=== PATIENT | female | born 1960 | race Two or more races ===

== ENCOUNTER 2021-03-08 10:08 | Emergency (ER) | payer OTHER ==
[~2021-03-08] VITALS: Ht 162.6 cm; Wt 90.7 kg
[2021-03-08] MEDS ORDERED: SEROQUEL25 MG PO (10:24)
[2021-03-08] MEDS ORDERED: LIPOFEN150 MG (10:24)
[2021-03-08] MEDS ORDERED: DEPAKOTE ER500 MG PO (10:25)
[2021-03-08] MEDS ORDERED: NEURONTIN800 MG PO (10:25)
[2021-03-08] MEDS ORDERED: GLIMEPIRIDE2 MG (10:25)
[2021-03-08] MEDS ORDERED: LEVO-T175 MCG PO (10:26)
[2021-03-08] MEDS ORDERED: VITAMIN D310 MCG/11 PO (10:26)
[2021-03-08] MEDS ORDERED: LIPITOR20 MG PO (10:27)
[2021-03-08] MEDS ORDERED: ECOTRIN81 MG PO (10:27)
[2021-03-08] MEDS ORDERED: CLONAZEPAM1 MG PO (10:27)
[2021-03-08] MEDS ORDERED: JANUMET 50-1,01 EACH PO (10:28)
[2021-03-08] MEDS ORDERED: INDERAL XL80 MG PO (10:28)
[2021-03-08] MEDS ORDERED: COLESTIPOL HCL5 GM PO (10:28)
[2021-03-08] MEDS ORDERED: LEVSIN/SL0.125 MG SL (17:38)
[2021-03-08] MEDS ORDERED: FLAGYL500MG PO (17:38)
== END 2021-03-08 18:33 | disposition home or self-care (01) ==
LOC: ER 10:08
DX: K52.89 Other specified noninfective gastroenteritis and colitis (principal)

== ENCOUNTER 2021-04-27 08:46 | Outpatient (CLI) | payer OTHER ==
[~2021-04-27 08:46] MED LIST: CLONAZEPAM1 MG PO; COLESTIPOL HCL5 GM PO; DEPAKOTE ER500 MG PO; ECOTRIN81 MG PO; FLAGYL500MG PO; GLIMEPIRIDE2 MG; INDERAL XL80 MG PO; JANUMET 50-1,01 EACH PO; LEVO-T175 MCG PO; LEVSIN/SL0.125 MG SL; LIPITOR20 MG PO; LIPOFEN150 MG; NEURONTIN800 MG PO; SEROQUEL25 MG PO; VITAMIN D310 MCG/11 PO
== END 2021-04-27 09:03 | disposition home or self-care (01) ==
LOC: TOM 08:46
PROVIDERS: ATTEND Internal Medicine Gastroenterology
DX: K52.9 Noninfective gastroenteritis and colitis, unspecified (principal)

== ENCOUNTER 2021-06-16 18:07 | Emergency (ER) | payer OTHER ==
[~2021-06-16] VITALS: Ht 165.1 cm; Wt 90.7 kg
[2021-06-16] MEDS ORDERED: SEROQUEL200 MG (18:24)
== END 2021-06-16 21:05 | disposition home or self-care (01) ==
LOC: ER 18:07
DX: R07.89 Other chest pain (principal); R42 Dizziness and giddiness; N39.0 Urinary tract infection, site not specified; R31.29 Other microscopic hematuria; F41.8 Other specified anxiety disorders

== ENCOUNTER 2021-12-18 09:11 | Outpatient (CLI) | payer OTHER ==
[~2021-12-18 09:11] MED LIST changes: +SEROQUEL200 MG
== END 2021-12-18 09:21 | disposition home or self-care (01) ==
LOC: TOM 09:11
PROVIDERS: ATTEND Urology
DX: N39.0 Urinary tract infection, site not specified (principal)
CPT/HCPCS: 74178; A9579

== ENCOUNTER 2022-01-31 11:09 | Outpatient (CLI) | payer OTHER | END 2022-01-31 11:14 | disposition home or self-care (01) | LOC: SONOGRAMA 11:09 | PROVIDERS: ATTEND Pathology Anatomic Pathology & Clinical Pathology | DX: E04.1 Nontoxic single thyroid nodule (principal) ==

== ENCOUNTER → 2022-02-05 14:28 | Outpatient (CLI) | payer OTHER | END | disposition home or self-care (01) | LOC: LAB 14:28 | PROVIDERS: ATTEND Urology | DX: N30.00 Acute cystitis without hematuria (principal) ==

== ENCOUNTER 2022-10-23 11:51 | Outpatient (CLI) | payer OTHER | END 2022-10-23 23:00 | disposition home or self-care (01) | LOC: LAB 11:51 | PROVIDERS: ATTEND Urology | DX: N30.00 Acute cystitis without hematuria (principal) ==

== ENCOUNTER 2022-11-06 13:10 | Outpatient (CLI) | payer OTHER | END 2022-11-06 13:11 | disposition home or self-care (01) | LOC: NUCLEAR 13:10 | PROVIDERS: ATTEND Urology | DX: N39.0 Urinary tract infection, site not specified (principal); N39.3 Stress incontinence (female) (male); Z88.1 Allergy status to other antibiotic agents; Z88.0 Allergy status to penicillin | CPT/HCPCS: 78701; A9539; J1940 ==

== ENCOUNTER 2023-01-08 23:40 | Emergency (ER) | payer OTHER ==
[~2023-01-08] VITALS: Ht 162.6 cm; Wt 82.1 kg
[2023-01-09] MEDS ORDERED: CLONAZEPAM2 MG PO (00:01)
== END 2023-01-09 10:29 | disposition home or self-care (01) ==
LOC: ER 23:40
DX: M54.50 Low back pain, unspecified (principal); Z96.698 Presence of other orthopedic joint implants; Z88.0 Allergy status to penicillin; Z88.2 Allergy status to sulfonamides; I10 Essential (primary) hypertension; E11.9 Type 2 diabetes mellitus without complications; Z79.84 Long term (current) use of oral hypoglycemic drugs; M51.36 Other intervertebral disc degeneration, lumbar region

== ENCOUNTER 2023-03-20 13:29 | Outpatient (CLI) | payer OTHER ==
[~2023-03-20 13:29] MED LIST changes: +CLONAZEPAM2 MG PO
== END 2023-03-20 13:31 | disposition home or self-care (01) ==
LOC: LAB 13:29
PROVIDERS: ATTEND Urology
DX: N39.0 Urinary tract infection, site not specified (principal)

== ENCOUNTER 2025-08-23 07:00 | Day surgery (SDC) | payer OTHER ==
[2025-08-16 11:55] VITALS: BP 137/80
[~2025-08-23] VITALS: Ht 165.1 cm; Wt 78.5 kg
[~2025-08-23 07:00] MED LIST changes: +ABILIFY5 MG PO; +TRULICITY4.5 MG/0.5
[2025-08-23] MEDS ORDERED: CIPROFLOXACIN IN 5 % DEXTROSE 400 MG/200 ML PIGGYBAG IV ONE (07:40)
[2025-08-23] MEDS ORDERED: GENTAMICIN SULFATE 40 MG/ML VIAL ONE (07:40)
[2025-08-23] MEDS ORDERED: CHLORHEXIDINE GLUCONATE 120 ML BOTTLE TOP ONE (07:41)
== END 2025-08-23 12:35 | disposition home or self-care (01) ==
LOC: CIR.AMB 07:00
PROVIDERS: ATTEND Obstetrics & Gynecology Gynecology
DX: N30.10 Interstitial cystitis (chronic) without hematuria (principal)